=== PATIENT | female | born 1955 | race Caucasian/White ===

== ENCOUNTER → 2018-03-06 | Outpatient (CLI) | payer MEDICARE, OTHER ==
[~2018-03-06] MED LIST: HYDR-34 PO; PROM12.59 PO
--- NOTE | 2018-03-06 10:31 | Diagnostic Imaging Report ---
INDICATION: Postmenopausal and osteoporosis screening. COMPARISON: No prior studies are available for comparison. FINDINGS: Bone mineral analysis of the lumbar spine and both hips was performed. Bone mineral density of lumbar spine is 0.784 with T score of -3.5. Bone mineral density of left femoral neck is 0.748 with T score of -2.1. Bone mineral density of right femoral neck is 0.787 with T score of -1.8. IMPRESSION: Osteoporosis of the lumbar spine and osteopenia of bilateral femoral necks. Dictated by: Dictated on workstation # [id number]
--- NOTE | 2018-03-06 12:54 | Diagnostic Imaging Report ---
INDICATION: Routine screening. COMPARISON: Comparison is made to prior mammogram from 12/06/2011. TECHNIQUE: 2D and 3D bilateral screening mammography was performed with computer-aided detection (CAD) system. FINDINGS: Both breasts remain heterogeneously dense, limiting the sensitivity of mammography. There is a new density in the lower and slightly outer aspect of the right breast, approximately 4 cm from the nipple. This may represent a cluster of cysts. Further evaluation with additional views and ultrasound is recommended. The left breast is unremarkable. No suspicious microcalcifications are seen. The axillae are unremarkable. IMPRESSION: Right breast density. Further evaluation with additional views and ultrasound is recommended. ACR BI-RADS Category 0: Incomplete. (Needs additional imaging evaluation). Result letter will be mailed to the patient. Note: At least 10% of breast cancer is not imaged by mammography. Dictated by: Dictated on workstation # [id number]
== END ==
LOC: RAD 08:58
PROVIDERS: ATTEND Nurse Practitioner Family
DX: Z12.31 Encounter for screening mammogram for malignant neoplasm of breast (principal); Z13.820 Encounter for screening for osteoporosis; M81.0 Age-related osteoporosis without current pathological fracture; M85.88 Other specified disorders of bone density and structure, other site
CPT/HCPCS: 77067; 77080